=== PATIENT | female | born 1990 | race Caucasian/White ===

== ENCOUNTER 2021-05-06 12:20 | Outpatient (CLI) | payer BC, SELFPAY ==
--- NOTE | ~2021-05-06 | XR_ITS ---
XR chest 2V DATE: 05/06/2021 12:46 INDICATION: Wheezing. Covid infection 3 weeks ago. TECHNIQUE: PA and lateral views COMPARISON: 03/26/2013 2 view chest FINDINGS: Normal heart size. No hilar or mediastinal enlargement. No pulmonary infiltrate or consolid ation, pleural effusion or pulmonary vascular congestion or pneumothorax. IMPRESSION: No active cardiopulmonary disease Reviewed, dictated and finalized at location A. 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
== END 2021-05-06 12:21 | disposition home or self-care (01) ==
PROVIDERS: PCP Physician Assistant; Visit Provider Physician Assistant
DX: U07.1 COVID-19 (principal); R06.2 Wheezing
CPT/HCPCS: 71046

== ENCOUNTER 2022-01-10 13:05 | Emergency (ER) | payer BC, SELFPAY ==
--- NOTE | ~2022-01-10 | CT_ITS ---
EXAMINATION: CTA chest PE protocol DATE: 01/10/2022 15:22 INDICATION: Chest pain and shortness of breath TECHNIQUE: Computed tomography angiography (CTA) of the chest was performed with 100 mL Omnipaque-350 intravenous contrast timed to evaluate the pulmonary arteries. Coronal maximum intensity projection 3D-reconstructions were created by the technologist. The dose-length product (DLP) was 229.45 mGy-cm. Automated exposure control and iterative reconstruction technique were employed. COMPARISON: None. FINDINGS: Respiratory motion artifact limits evaluation in the lower lobes. The pulmonary arteries ar e well-opacified. No pulmonary embolism is identified. The lungs are free of acute opacities. No pleu ral effusion or pneumothorax. No pathologically enlarged thoracic lymph nodes are identified. The hea rt size is normal. The visualized bones and soft tissues are unremarkable. IMPRESSION: 1. No pulmonary embolism or acute cardiopulmonary abnormality. Reviewed, dictated and finalized at location B. 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
--- NOTE | ~2022-01-10 | XR_ITS ---
EXAMINATION: XR chest 2V DATE: 01/10/2022 13:35 INDICATION: Shortness of breath TECHNIQUE: PA and lateral views of the chest are obtained. COMPARISON: 05/06/2021 FINDINGS: The lungs are free of acute opacities. No pleural effusion or pneumothorax. The cardiomedia stinal silhouette is normal. The visualized bones and soft tissues are unremarkable. IMPRESSION: 1. No acute cardiopulmonary abnormality. Reviewed, dictated and finalized at location B. IT INTERVIEWER
--- NOTE | 2022-01-10 13:06 | ECG_ITS ---
Measurements Intervals [place] Rate: 128 P: 71 WV: 165 QRS: 72 QRSD: 86 T: 39 QT: 294 QTc: 429 Interpretive Statements SINUS TACHYCARDIA ABNORMAL ECG NO PREVIOUS ECG AVAILABLE FOR COMPARISON Electronically Signed On 01-10-2022 13:27:43 [employer] by Kulwinder Contreras D.O.
[2022-01-10 13:20] VITALS: BP 140/92; PULSE 119; RESP 22; TEMP 37.2; O2SAT 100
[2022-01-10 13:26] LABS: Basophils Absolute Auto 0.1 K/mm3 (0.0-0.1); Basophils Percent Auto 0.7 % (0.2-1.2); Eosinophils Absolute Auto 0.3 K/mm3 (0-0.3); Eosinophils Percent Auto 4.1 % (0-4.4); Hematocrit 39.7 % (37.0-47.0); Hemoglobin 13.5 g/dL (12.0-15.0); Immature Granulocyte Absolute 0.01 K/mm3 (0.00-0.031); Immature Granulocyte Percent A 0.1 % (0-0.5); Lymphocytes Absolute Auto 2.22 K/mm3 (0.9-3.2); Lymphocytes Percent Auto 32.6 % (18.3-44.2); Mean Corpuscular Hemoglobin 30.1 pg (26-34); Mean Corpuscular Volume 88.6 fl (80-100); Mean Platelet Volume 8.8 fl (7.4-10.4); Monocytes Absolute Auto 0.3 K/mm3 (0.1-0.6); Monocytes Percent Auto 4.7 % (2.6-8.5); Neutrophils Absolute Auto 3.9 K/mm3 (1.3-6.7); Neutrophils Percent Auto 57.8 % (45.5-73.1); Platelet Count Result 339 k/mm3 (150-375); Red Blood Count 4.48 M/mm3 (4.2-5.4); Red Cell Distribution Width 11.9 % (11.5-14.5); White Blood Count 6.8 K/mm3 (4.5-10.0)
[2022-01-10 13:38] LABS: Alanine Aminotransferase 16 U/L (6-35); Albumin Level 4.9 g/dL (3.5-5.1); Alkaline Phosphatase 50 U/L (38-126); Anion Gap 18 mmol/L (8-16); Aspartate Amino Transferase 27 U/L (14-36); Bilirubin,Total 0.4 mg/dL (0.2-1.3); Blood Urea Nitrogen 10 mg/dL (7-17); Calcium 9.1 mg/dL (8.4-10.2); Carbon Dioxide 21 mmol/L (22-30); Chloride 100 mmol/L (98-107); Estimated CRCL calculation 87 ml/min; Estimated Glomerular Filt Rate > 60; Glucose 103 mg/dL (65-110); Lipase 200 U/L (23-300); Potassium 2.8 mmol/L (3.4-5.0); Sodium 139 mmol/L (137-145)
[2022-01-10 13:45] LABS: Prothrombin Time 12.9 Seconds (11.1-14.7)
[2022-01-10 13:46] LABS: Partial Thromboplastin Time 27.4 SECONDS (22.3-36.8)
[2022-01-10 13:48] LABS: Troponin I < 0.012 ng/mL (0.000-0.034)
[2022-01-10 13:52] VITALS: PULSE 135
[2022-01-10 13:53] VITALS: O2SAT 100
[2022-01-10] MEDS: POTASSIUM CHLORIDE 20 MEQ PACKET (FOR LIQUID) 40 MEQ PO (13:54)
[2022-01-10] MEDS: ASPIRIN 81 MG CHEWABLE TABLET 324 MG PO (13:55)
[2022-01-10 13:56] VITALS: O2SAT 100
--- NOTE | 2022-01-10 16:18 | ED.CHESTPAIN ---
HPI - Chest Pain General Chief Complaint: Chest Pain Stated Complaint: palpitations, sob Time Seen by Provider: 01/10/22 13:44 Source: patient and family Mode of arrival: ambulatory Limitations: no limitations History of Present Illness HPI narrative: 31-year-old otherwise healthy here with complaints of sudden onset of chest pain followed by palpitations and high blood pressure since this morning. She denies any fever or chills. No history of nausea or vomiting. She denies being anxious. She is been on control for past 1 year. She states that she gets occasional headaches with the control. She denies any abdominal pain or vaginal bleeding. Patient states that she was on BuSpar and she recently stopped using the medication. She also reports that she has elevated heart rate all the time and has seen maori liaison adviser in the past. Family reports that she was mixing few chemicals like ammonia and other chemicals for cleaning purposes. complaint: chest pain Related Data Allergies Allergy/AdvReac Type Severity Reaction Status Date / Time amoxicillin Allergy Mild Rash Verified 01/10/22 14:02 Review of Systems Review of Systems: All systems reviewed & are unremarkable except as noted in HPI and below Constitutional: Constitutional: Reports no additional constitutional complaints Eyes: Eyes: Reports no additional eye complaints ENT: Reports system reviewed and no additional complaints, except as documented Cardiovascular: Cardiovascular: Reports as per HPI and Reports rapid heart rate Respiratory: Respiratory: Reports as per HPI Gastrointestinal: Gastrointestinal: Reports no additional gastrointestinal complaints Musculoskeletal: Musculoskeletal: Reports no additional musculoskeletal complaints Neurologic: Reports system reviewed and no additional complaints, except as documented Exam Narrative: GENERAL: Well-appearing, well-nourished, and in no acute distress. HEAD: Normocephalic, atraumatic. EYES: PERRLA and EOMI. NECK: Supple. CHEST: Clear to auscultation. No respiratory distress. HEART: Tachycardic. No murmur heard. Normal peripheral pulses. ABDOMEN: Soft, nontender, nondistended, normal active bowel sounds. EXTREMITIES: Normal range of motion. No edema. SKIN: Warm, dry, no rash. NEURO: No focal deficits. Alert and oriented x3. PSYCH: Normal mood and affect. Course Course Emergency Course: Patient upon arrival was tachycardic and hypertensive. She recently started on control will do a PE study. However she has a history of underlying anxiety disorder we will give her 0.5 and IV and IV fluids to see if her tachycardia improves. Patient feeling much better after IV Ativan and IV fluids informed her about her lab work, EKG and CT findings. Recommended to take her metoprolol as prescribed., Follow-up with her primary doctor. Also advised her to continue BuSpar and Zoloft . Vital Signs Vital signs: Vital Signs Temperature 37.2 C 01/10/22 13:20 Pulse Rate 119 H 01/10/22 13:20 Respiratory Rate 22 H 01/10/22 13:20 Blood Pressure 140/92 H 01/10/22 13:20 Pulse Oximetry 100 01/10/22 13:20 Oxygen Delivery Room Air 01/10/22 13:20 Temperature 37.2 C 01/10/22 13:20 Pulse Rate 121 H 01/10/22 17:42 Respiratory Rate 18 01/10/22 17:42 Blood Pressure 146/90 H 01/10/22 17:42 Pulse Oximetry 99 01/10/22 17:42 Oxygen Delivery Room Air 01/10/22 13:56 MDM - Chest Pain Differential Diagnosis Differential diagnosis: Likely atypical chest pain, chest pain and other (Anxiety) Medical Records Data Attestation: I reviewed the patient's medical records. Lab Data Attestation: I reviewed the patient's lab results. Result diagrams: 01/10/22 13:17 01/10/22 13:17 Labs: Lab Results 01/10/22 01/10/22 01/10/22 Range/Units 13:17 13:17 13:17 WBC 6.8 (4.5-10.0) K/mm3 RBC 4.48 (4.2-5.4) M/mm3 Hgb 13.5 (12.0-15.0) g/dL Hct 39.7
[2022-01-10 16:46] LABS: Troponin I < 0.012 ng/mL (0.000-0.034)
[2022-01-10] MEDS: SODIUM CHLORIDE 0.9% IV 1,000 ML 999 ML IV CONT (16:48)
[2022-01-10] MEDS: LORazepam INJ (*CRX) 2 MG/ML VIAL 0.5 MG IV PUSH (16:49)
[2022-01-10 17:01] LABS: Influenza A QL RT-PCR Negative (Negative); Influenza B QL RT-PCR Negative (Negative); SARS-CoV-2 RNA PCR Negative
[2022-01-10 17:42] VITALS: BP 146/90; PULSE 121; RESP 18; O2SAT 99
[2022-01-10 18:33] VITALS: BP 131/87; PULSE 119; RESP 19; O2SAT 99
== END 2022-01-10 18:34 | disposition home or self-care (01) ==
PROVIDERS: Emergency Medicine; Emergency Provider Family Medicine; PCP Physician Assistant
DX: R00.0 Tachycardia, unspecified (principal); F41.9 Anxiety disorder, unspecified; Z20.822 Contact with and (suspected) exposure to COVID-19
CPT/HCPCS: 36415; 71046; 71275; 80053; 81025; 83690; 84443; 84484; 85025; 85610; 85730; 87502; 93005; 96361; 96374; 99284; A9270; J2060; J7030; Q9967; U0003; U0005

== ENCOUNTER 2022-03-01 09:46 | Emergency (ER) | payer BC, SELFPAY ==
[2022-03-01 10:58] VITALS: BP 137/102; PULSE 108; RESP 16; TEMP 37.3; O2SAT 100
--- NOTE | 2022-03-01 11:19 | ED.URI ---
HPI - URI/Sore Throat General Chief Complaint: Upper Respiratory Infection Stated Complaint: uri Time Seen by Provider: 03/01/22 11:19 Source: patient and RN notes reviewed Mode of arrival: ambulatory Limitations: no limitations History of Present Illness HPI Narrative: 31 y/o female presented for c/o cough and 'burning lungs' since yesterday. Endorses fatigue, body aches, and subjective fever. Cough is nonproductive. Denies sob, wheezing, n/v/d. Not taking anything for symptoms. Denies sick contacts. States she had covid 04/2021, which resulted in cough and 'asthma symptoms' for 6 months. Hx tachycardia. MD elicited complaint: cough Related Data Home Medications Medication Instructions Recorded Confirmed buspirone 5 mg tablet 5 mg PO DAILY 03/01/22 03/01/22 drospirenone 3 mg-ethinyl 1 tablet PO DAILY 03/01/22 03/01/22 estradiol 0.02 mg tablet potassium chloride 10 mEq 10 meq PO DAILY 03/01/22 03/01/22 tablet,extended release sertraline 50 mg tablet 50 mg PO DAILY 03/01/22 03/01/22 Allergies Allergy/AdvReac Type Severity Reaction Status Date / Time amoxicillin Allergy Mild Rash Verified 03/01/22 11:00 Review of Systems Review of Systems: per HPI Exam Narrative: GENERAL: well-appearing EYES: PERRLA, conjunctivae clear ENT: Mucous membranes moist. TMs pearly zhong with dull light reflex bilaterally; no tragal tenderness. Oropharynx without lesions or exudate, no drooling, no hoarseness, no trismus, uvula midline. NECK: Supple. No lymphadenopathy CHEST: Clear to auscultation, breath sounds equal. No wheezing, rhonchi, rales, or stridor. No respiratory distress, speaks in full sentences. HEART: Regular rate and rhythm. No murmur heard. SKIN: Warm, dry, no rash. NEURO: Alert and oriented x3. PSYCH: Normal mood and affect Course Course Emergency Course: Patient is aware of diagnosis, understands and agrees to treatment plan. Anticipatory guidance given. Patient agrees to follow-up as directed and is aware of reasons to seek care at the emergency department. Portions of this record may have been created with voice recognition software Level of Care: Express Care Visit Vital Signs Vital signs: Vital Signs Temperature 99.2 F 03/01/22 10:58 Pulse Rate 108 H 03/01/22 10:58 Respiratory Rate 16 03/01/22 10:58 Blood Pressure 137/102 H 03/01/22 10:58 Pulse Oximetry 100 03/01/22 10:58 Oxygen Delivery Room Air 03/01/22 10:58 Temperature 99.2 F 03/01/22 10:58 Pulse Rate 108 H 03/01/22 10:58 Respiratory Rate 16 03/01/22 10:58 Blood Pressure 137/102 H 03/01/22 10:58 Pulse Oximetry 100 03/01/22 10:58 Oxygen Delivery Room Air 03/01/22 10:58 reviewed MDM - URI/Sore Throat MDM Narrative Medical decision making narrative: Result of COVID and flu test reviewed with patient. Appears anxious. Advised supportive measures and signs/symptoms to go to the ER. Pt is appropriate for outpt treatment and f/u. Differential Diagnosis Differential diagnosis: Likely upper respiratory infection, sinusitis and viral infection Discharge Plan Discharge Clinical Impression: Viral infection Patient Disposition: Home, Self-Care Condition: Stable Additional Instructions: Your blood pressure reading was elevated (above 120/80) please follow-up with your primary care provider for further evaluation and management. flu test negative. Your rapid covid test was negative today. It may be too early to detect the virus, therefore we recommend retesting at home in 1-2 days Continue to follow general precautions: frequent handwashing, wear a mask, isolate/social distance, and avoid crowds if you have a fever. You must be fever free for 24 hours without the use of fever reducing medication (Tylenol/ibuprofen) before returning to work/school/crowds. Symptom treatment includes rest, push fluids, Tylenol, ibuprofen, Zyrtec or Flonase for sinus congestion, [id number] cough syrup as needed. Fo
== END 2022-03-01 12:20 | disposition home or self-care (01) ==
PROVIDERS: Emergency Provider Nurse Practitioner Family
DX: B34.9 Viral infection, unspecified (principal); Z20.822 Contact with and (suspected) exposure to COVID-19
CPT/HCPCS: 87426; 87804; 99213; C9803; G0463

== ENCOUNTER 2022-06-04 19:44 | Emergency (ER) | payer BC, SELFPAY ==
[2022-06-04 19:51] VITALS: BP 128/82; PULSE 106; RESP 16; TEMP 37.1; O2SAT 100
--- NOTE | 2022-06-04 19:53 | ED.NAVMDI ---
HPI - Nausea/Vomiting/Diarrhea General Chief complaint: Nausea/Vomiting/Diarrhea Stated complaint: Vomiting/Diarrhea Source: patient and RN notes reviewed History of Present Illness HPI Narrative: 31-year-old male presents to urgent care with complaint vomiting and diarrhea that started on Monday. Patient states the vomiting stopped on Monday but she continues to have diarrhea. Patient denies any abdominal pain but does report some lower abdominal pressure. Patient denies any dysuria or urinary frequency. Denies any back pain, flank pain, fevers, or chills. Denies ang upper respiratory symptoms. Also denies any sick contacts. Some parts of this dictation were generated by voice recognition software and may contain typographical and/or grammatical inaccuracies. Related Data Home Medications Medication Instructions Recorded Confirmed buspirone 5 mg tablet 5 mg PO DAILY 03/01/22 06/04/22 drospirenone 3 mg-ethinyl 1 tablet PO DAILY 03/01/22 06/04/22 estradiol 0.02 mg tablet potassium chloride 10 mEq 10 meq PO DAILY 03/01/22 06/04/22 tablet,extended release sertraline 50 mg tablet 50 mg PO DAILY 03/01/22 06/04/22 Allergies Allergy/AdvReac Type Severity Reaction Status Date / Time amoxicillin Allergy Mild Rash Verified 06/04/22 19:58 Review of Systems Review of Systems: Pertinent positives and pertinent negatives per HPI. PMFSH Comments At the time of my signature, I reviewed and agree with the nursing past medical, surgical, social, and family history. There is no relevant family history pertinent to the patient complaint. Exam Narrative: GENERAL: This is a well-nourished, well-developed patient, in no apparent distress. HEAD: normocephalic, atraumatic. EYES: Sclera clear/white. Vision is grossly intact. EARS: External ears normal, auditory canals clear and without drainage. Hearing grossly intact. NOSE: External nose normal with no obvious nasal discharge, nares without redness, no rhinorrhea. THROAT: Mucous membranes moist, posterior pharynx clear. NECK: Neck supple, non-tender without lymphadenopathy, masses or thyromegaly. CARDIOVASCULAR: Regular rate and rhythm without murmurs, gallops, or rubs. RESPIRATORY: Clear to auscultation. Breath sounds equal bilaterally. No wheezes, rales, or rhonchi. GASTROINTESTINAL: Abdomen soft, non-tender, nondistended. Bowel sounds are active. No hepato-splenomegaly, or palpable masses. No guarding. SKIN: warm, intact with no suspicious lesions or rash, good texture and turgor. NEURO: awake, alert, and oriented to person, place and time. There were no obvious focal neurologic abnormalities. Course Course Level of Care: Express Care Visit Vital Signs Vital signs: Vital Signs Temperature 98.7 F 06/04/22 19:51 Pulse Rate 106 H 06/04/22 19:51 Respiratory Rate 16 06/04/22 19:51 Blood Pressure 128/82 06/04/22 19:51 Pulse Oximetry 100 06/04/22 19:51 Oxygen Delivery Room Air 06/04/22 19:51 Temperature 98.7 F 06/04/22 19:51 Pulse Rate 106 H 06/04/22 19:51 Respiratory Rate 16 06/04/22 19:51 Blood Pressure 128/82 06/04/22 19:51 Pulse Oximetry 100 06/04/22 19:51 Oxygen Delivery Room Air 06/04/22 19:51 reviewed MDM - Nausea/Vomiting/Diarrhea MDM Narrative Medical decision making narrative: You've been diagnosed with a viral illness that would not require antibiotics at this time. Take the Zofran ODT at home as directed for nausea and get plenty of fluids. You may take Imodium for diarrhea. If you would like to eat food, you should follow the BRAT diet (bananas, rice, applesauce, and toast, or things of the like). If you develop any new or worsening symptoms, you should go to the emergency dept without hesitation. 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 discussed with patient her UTI diagnosis. Patient denies any dysuria and she was told it would be reasonable to wait to take the Abx after she found out the culture r
== END 2022-06-04 20:11 | disposition home or self-care (01) ==
PROVIDERS: Emergency Provider Nurse Practitioner Family; PCP Nurse Practitioner Family
DX: K52.9 Noninfective gastroenteritis and colitis, unspecified (principal); N39.0 Urinary tract infection, site not specified; I34.1 Nonrheumatic mitral (valve) prolapse; F41.9 Anxiety disorder, unspecified; F32.A Depression, unspecified
CPT/HCPCS: 81003; 81025; 87086; 99213; G0463

== ENCOUNTER 2022-09-20 08:56 | Outpatient (CLI) | payer BC, SELFPAY ==
--- NOTE | ~2022-09-20 | US_ITS ---
Pelvic ultrasound. Clinical History: Pelvic pain Technique: Realtime transabdominal and transvaginal scanning of the pelvis was performed. Color flow Doppler and Doppler spectral analysis were performed. Findings: The uterus is retroverted. The endometrial stripe has a thickness of 3 mm. No focal mass i s identified. The right ovary measures 3.8 x 2.3 x 1.7 cm. No significant right ovarian or adnexal mass is seen. The left ovary measures 3.5 x 1.5 x 1.4 cm. No significant left ovarian or adnexal mass is seen. Vascular flow present in both ovaries on Doppler spectral analysis. There is minimal free fluid in the cul de sac. Impression: Minimal free fluid, nonspecific, otherwise unremarkable exam. Reviewed, dictated and finalized at location . Impression: Minimal free fluid, nonspecific, otherwise unremarkable exam.
== END 2022-09-20 08:57 | disposition home or self-care (01) ==
PROVIDERS: PCP Nurse Practitioner Family; Visit Provider Nurse Practitioner Family
DX: R10.31 Right lower quadrant pain (principal)
CPT/HCPCS: 76830; 76856

== ENCOUNTER 2022-11-03 09:36 | Outpatient (CLI) | payer BC, SELFPAY ==
--- NOTE | ~2022-11-03 | CT_ITS ---
Non-contrast CT scan of the Abdomen and Pelvis Clinical indication: Abdominal pain Technique: 2.5 mm axial scans were obtained through the abdomen and pelvis without intravenous or or al contrast. Dose reduction technique was used on this scan by utilizing automated exposure control a nd iterative reconstruction technique. The dose-length product (DLP) was 263.33 mGy-cm. Findings: Images through the lung bases reveal no abnormalities. There is no evidence of renal or ureteral calculi. The kidneys and the ureters are nondilated. The liver, spleen, pancreas, gallbladder, and adrenals appear normal. There is no aortic aneurysm. There is no evidence of bowel obstruction. Normal appendix. Images through the pelvis were performed. There is no evidence of ascites or lymphadenopathy. Urinary bladder unremarkable. No adnexal mass evident. Impression: Unremarkable exam. Reviewed, dictated and finalized at [facility]. Impression: Unremarkable exam.
== END 2022-11-03 09:37 | disposition home or self-care (01) ==
PROVIDERS: PCP Nurse Practitioner Family; Visit Provider Nurse Practitioner Family
DX: R10.9 Unspecified abdominal pain (principal)
CPT/HCPCS: 74176

== ENCOUNTER 2023-08-24 08:38 | Outpatient (CLI) | payer BC, SELFPAY ==
--- NOTE | ~2023-08-24 | US_ITS ---
EXAMINATION: US pelvic complete w TV INDICATION: Postcoital and contact bleeding Comparison:09/20/2022 TECHNIQUE: Multiple transabdominal and endovaginal sonographic images of the pelvis performed. FINDINGS: The uterus measures 7.2 x 4.2 x 5.2 cm. Uterus is retroverted. The endometrial complex yumiko ures 3. The right ovary measures 3.8 x 2.3 x 1.7 cm and the left ovary measures 3.5 x 1.5 x 1.4 cm. There ar e small follicles in each ovary. Normal doppler signal in both ovaries. There is free fluid in the pelvis. There are no abnormal masses seen on either side. IMPRESSION: 1. Unremarkable pelvic ultrasound. Reviewed, dictated and finalized at location B.
== END 2023-08-24 08:39 ==
PROVIDERS: PCP Nurse Practitioner Family; Visit Provider Nurse Practitioner Women's Health
DX: N93.0 Postcoital and contact bleeding (principal)
CPT/HCPCS: 76830; 76856

== ENCOUNTER 2024-07-23 08:23 | Emergency (ER) | payer BC, SELFPAY ==
[2024-07-23 08:36] VITALS: BP 103/76; PULSE 91; RESP 16; TEMP 36.6; O2SAT 98
--- NOTE | 2024-07-23 08:51 | ED_ITS ---
HPI - Female Genitourinary General Chief complaint: Urogenital-Female Stated complaint: Uti Symptoms Time Seen by Provider: 07/23/24 09:09 Source: patient and RN notes reviewed Mode of arrival: ambulatory Limitations: no limitations History of Present Illness HPI Narrative: 33-year-old female presents with concern for urinary tract infection. She reports dysuria, frequency, urgency, hematuria. Reports symptoms started yesterday. She denies back pain, stomach pain, nausea, vomiting, fever, body aches, chills, sweats. MD elicited complaint: UTI Related Data Home Medications Medication Instructions Recorded Confirmed Last Taken Type bupropion HCl 300 mg 24 hr tablet, mg PO 05/16/24 05/16/24 Unknown History extended release cetirizine 10 mg capsule (Zyrtec) 10 mg PO DAILY PRN 05/16/24 05/16/24 Unknown History propranolol 20 mg tablet mg PO 05/16/24 05/16/24 Unknown History sertraline 50 mg tablet 75 mg PO DAILY 05/16/24 05/16/24 Unknown History magnesium oxide 400 mg (241.3 mg mg 07/23/24 Unknown History magnesium) tablet Allergies Allergy/AdvReac Type Severity Reaction Status Date / Time amoxicillin Allergy Mild Rash Verified 07/23/24 08:57 Penicillins AdvReac Intermediate Rash Verified 07/23/24 08:57 Review of Systems Review of Systems: CONSTITUTIONAL: Denies malaise, chills, sweats, or fever. CARDIOVASCULAR: Denies chest pain, palpitations, or edema. RESPIRATORY: Denies cough or dyspnea. GASTROINTESTINAL: Denies abdominal pain, nausea, vomiting, diarrhea GENITOURINARY: Reports dysuria, frequency, urgency, hematuria. Denies flank pain SKIN: Denies rash or itching. MUSCULOSKELETAL: Denies back pain or myalgia. All systems reviewed & are unremarkable except as noted in HPI and below PMFSH Past Medical History Medical History (Updated 07/23/24 @ 09:15 by Alessia Hadley NP) Mitral valve prolapse Allergies Surgical History Surgical History H/O sinus surgery 2015 and 2022 History of bunionectomy left foot 2022 Family History Family History Father Alcoholism Throat cancer Depression Hypertension Mother Ovarian cancer Breast cancer Depression Hypertension Sibling Depression Grandparent Hypertension Social History Social History (Updated 05/16/24 @ 13:39 by Alan Parada MA) Smoking status: Never smoker Alcohol intake: never Substance use: never Substance use type: does not use Do You Feel Safe in your Home?: Yes Lack of Transportation: No Lack of Food: Never True Current Housing: I Have Housing Concerned About Future Housing: No Difficulty Paying Gas/Electric Bills: No Difficulty Paying for Meds: No Currently Unemployed: No Education: Bachelor's Degree Difficulty w/ Childcare or Family Care: No Living arrangements: with family Occupation/Education: unemployed Gender identity (if verbalized by the patient): Female Sexual Orientation (if Verbalized by the Patient): Straight or Heterosexual Comments At time of signature, agree with nursing past medical, surgical, social and family history. There is no relevant family history pertinent to the presenting complaint Exam Narrative: GENERAL: Well-appearing, well-nourished, and in no acute distress. HEAD: Normocephalic. EYES: PERRLA, conjunctivae clear. NECK: Supple. No lymphadenopathy CHEST: Clear to auscultation. No respiratory distress. HEART: Regular rate and rhythm. SKIN: Warm, dry, no rash. NEURO: Alert and oriented x3. PSYCH: Normal mood and affect Course Course Emergency Course: Patient is aware of diagnosis, understands and agrees to treatment plan. Anticipatory guidance given. Patient agrees to follow-up as directed and is aware of reasons to seek care at the emergency department. Portions of this record may have been created with voice recognition software Level of Care: Express Care Visit Vital Signs Vital signs: Vital Signs Temperature 97.8 F 07/23/24 08:36 Pulse Rate 91 07/23/24 08:36 Respiratory Rate 16 07/23/24 08:36 Blood Pressure 103/76 07/23/24 08:36 Pulse Oximetry 98 07/23/24 08:36 Temperature 97.8 F 07/23/24 08:36 Pulse Rate 91 07/23/24 08:36 Respiratory Rate 16 07/23/24 08:36 Blood Pressure 103/76 07/23/24 08:36 Pulse Oximetry 98 07/23/24 08:36 Reviewed. MDM - Female Genitourinary MDM Narrative Medical decision making narrative: Exam findings and UA show no acute concerns or changes; patient is non-toxic appearing and is in no distress. Patient is appropriate for outpatient treatment and follow-up. Differential Diagnosis Differential diagnosis: Likely urinary tract infection and cystitis Critical Care Time Critical Care Time Critical Care Time: No Discharge Plan Discharge Clinical Impression: Urinary tract infection Patient Disposition: Home Condition: Stable Instructions: Antibiotic Form, Acute Urinary Retention in Women (ED) Additional Instructions: We will send a urine culture to the lab; if the culture identifies an organism that the prescribed antibiotic will not treat, you will receive a phone call from an urgent care staff member and an appropriate antibiotic will be prescribed. -Your symptoms should begin to improve within a day of starting antibiotics. But you should finish all the antibiotic pills you get. Otherwise your infection might come back. -Also recommend: increase water intake. Tylenol/ibuprofen as needed for pain or fever -Follow-up with your primary care provider for urine recheck or seek ER visit if condition worsens with high fever, nausea, vomiting and severe back pain. Patient Language: Comoran Prescriptions: New cephalexin 500 mg capsule 500 mg PO QID 10 Days Qty: 40 0RF No Action magnesium oxide 400 mg (241.3 mg magnesium) tablet sertraline 50 mg tablet 75 mg PO DAILY propranolol 20 mg tablet PO Zyrtec 10 mg capsule 10 mg PO DAILY PRN bupropion HCl 300 mg tablet extended release 24 hr PO Patient Comments: tapering off to 150mg desog-e.estradiol/e.estradiol 0.15-0.02 mgx21 /0.01 mg x 5 tablet 1 tablet PO DAILY Qty: 84 1RF metoprolol succinate [Toprol XL] 25 mg tablet extended release 24 hr 12.5 mg PO DAILY Qty: 30 0RF Follow-up/Referrals: PHYSICIAN,RETAIL SALES ASSOCIATE SEASONAL [Primary Care Provider] - Time of Disposition: 09:16
[2024-07-23 09:02] LABS: EDUAAPPEAR Clear; EDUABILI Negative (Negative); EDUABLOOD 2+ (Negative); EDUACOLOR1 Yellow; EDUAGLUCOSE Negative (Negative); EDUAKETONE Negative (Negative); EDUALEUKO 1+ (Negative); EDUANITRATE Positive (Negative); EDUAPROTEIN Negative (Negative); EDUASPGRAVITY 1.005; EDUAUROBILI 0.2
== END 2024-07-23 09:17 | disposition home or self-care (01) ==
PROVIDERS: Emergency Provider Nurse Practitioner
DX: N39.0 Urinary tract infection, site not specified (principal); I34.1 Nonrheumatic mitral (valve) prolapse
CPT/HCPCS: 81003; 87077; 87086; 87186; 99213; G0463

== ENCOUNTER 2025-01-17 14:37 | Outpatient (CLI) | payer OTHER, SELFPAY ==
--- NOTE | ~2025-01-17 | US_ITS ---
EXAM/PROCEDURE: US OB <= 14 weeks fetus HISTORY: Encounter for screening COMPARISON: None available. TECHNIQUE: Directed exam for viability and dating performed. FINDINGS: A single viable intrauterine gestation is present with heart rate of 157 bpm EGA by both dates and ultrasound 7 weeks 6 days EDC by dates and ultrasound August 30, 2025 Right ovary: 3.7 x 1.0 x 2.6 cm Left ovary not visualized. The right ovary appears normal in echotexture and vascular flow. No left adnexal mass or free fluid seen. IMPRESSION: Single viable intrauterine gestation with concordant dates. The left ovary is not visualized; the right ovary appears normal. Reviewed, dictated and finalized at location A. K TYPIST IMPRESSION: Single viable intrauterine gestation with concordant dates. The lef t ovary is not visualized; the right ovary appears normal.
== END 2025-01-17 14:38 | disposition home or self-care (01) ==
LOC: MICIMG 14:38
DX: Z36.87 Encounter for antenatal screening for uncertain dates (principal)
CPT/HCPCS: 76801